=== PATIENT | female | born 1965 | race Native Hawaiian/Other Pacific Islander ===

== ENCOUNTER 2017-02-03 10:11 | Outpatient (CLI) | payer BC ==
[~2017-02-03 10:11] MED LIST: ALPR0.5T24 PO; BUTRANS5 MCG/HR TD; DICL1GEL2 TOP; DICL75TA4 PO; EFFEXOR XR75 MG PO; OMEP40CA PO
== END 2017-02-03 19:04 | disposition home or self-care (01) ==
LOC: US 10:11 → MAMMO 02-04 15:30
DX: Z12.31 Encounter for screening mammogram for malignant neoplasm of breast (principal); R60.0 Localized edema
CPT/HCPCS: G0202-TC

== ENCOUNTER 2017-03-09 07:48 | Day surgery (SDC) | payer BC ==
[2017-03-03 09:34] LABS: POTASSIUM 3.5 mmol/L (3.6-5.2); SODIUM 140 mmol/L (136-145)
[2017-03-03 09:35] LABS: PLATELET COUNT 206 K/uL (152-353)
[2017-03-03 09:45] LABS: PARTIAL THROMBOPLASTIN TIME 26.7 SECONDS (24.5-33.6)
== END 2017-03-09 10:42 | disposition home or self-care (01) ==
LOC: OR 07:48
PROVIDERS: Student in an Organized Health Care Education/Training Program
PROC: 0DBN8ZZ Excision of Sigmoid Colon, Via Natural or Artificial Opening Endoscopic (ICD-10-PCS; principal; 2017-03-09)
PROC: 0DBH8ZZ Excision of Cecum, Via Natural or Artificial Opening Endoscopic (ICD-10-PCS; 2017-03-09)
PROC: 0DBE8ZZ Excision of Large Intestine, Via Natural or Artificial Opening Endoscopic (ICD-10-PCS; 2017-03-09)
PROC: 0DBL8ZZ Excision of Transverse Colon, Via Natural or Artificial Opening Endoscopic (ICD-10-PCS; 2017-03-09)
DX: D12.5 Benign neoplasm of sigmoid colon (principal); K64.8 Other hemorrhoids; Z12.11 Encounter for screening for malignant neoplasm of colon
CPT/HCPCS: 36415; 80053; 85027; 85610; 85730; J2704

== ENCOUNTER 2017-08-17 16:12 | Outpatient (CLI) | payer BC | END 2017-08-17 17:15 | disposition home or self-care (01) | LOC: RAD 16:12 | DX: M15.8 Other polyosteoarthritis (principal); M25.541 Pain in joints of right hand ==

== ENCOUNTER 2018-03-18 12:42 | Outpatient (CLI) | payer BC | END 2018-03-18 19:47 | disposition home or self-care (01) | LOC: MAMMO 12:42 | DX: Z12.31 Encounter for screening mammogram for malignant neoplasm of breast (principal); M54.12 Radiculopathy, cervical region ==

== ENCOUNTER 2018-04-11 10:50 | Outpatient (CLI) | payer BC | END 2018-04-11 19:45 | disposition home or self-care (01) | LOC: MRI 10:50 | DX: M54.12 Radiculopathy, cervical region (principal) ==

== ENCOUNTER 2018-04-19 22:22 | Emergency (ER) | payer BC ==
[~2018-04-19] VITALS: Ht 154.9 cm; Wt 136.1 kg
[2018-04-19] MEDS ORDERED: CEVIMELINE HCL30 MG PO (23:20)
[2018-04-19] MEDS ORDERED: VALTREX500 MG PO (23:21)
[2018-04-19] MEDS ORDERED: ROBAXIN-750750 MG PO (23:22)
[2018-04-19] MEDS ORDERED: MELOXICAM15 MG PO (23:23)
[2018-04-19] MEDS ORDERED: ESCITALOPRAM20 MG PO (23:24)
[2018-04-19] MEDS ORDERED: GABA300C2 PO (23:24)
[2018-04-19] MEDS ORDERED: CLON1TAB18 PO (23:24)
[2018-04-20 00:01] LABS: PLATELET COUNT 233 K/uL (152-353)
[2018-04-20 00:17] LABS: POTASSIUM 4.2 mmol/L (3.6-5.2)
[2018-04-20 03:21] VITALS: BP 148/84; TEMP 97.7
== END 2018-04-20 03:20 | disposition home or self-care (01) ==
LOC: ED 22:22
PROVIDERS: Internal Medicine
DX: N20.0 Calculus of kidney (principal); R31.9 Hematuria, unspecified; R73.9 Hyperglycemia, unspecified; R10.32 Left lower quadrant pain
CPT/HCPCS: 36415; 80053; 81000; 85027; 99283; Q9963

== ENCOUNTER 2020-03-21 13:59 | Outpatient (CLI) | payer BC ==
[~2020-03-21 13:59] MED LIST changes: +CEVIMELINE HCL30 MG PO; +CLON1TAB18 PO; +ESCITALOPRAM20 MG PO; +GABA300C2 PO; +MELOXICAM15 MG PO; +ROBAXIN-750750 MG PO; +VALTREX500 MG PO
== END 2020-03-21 19:09 | disposition home or self-care (01) ==
LOC: MAMMO 13:59
DX: Z12.31 Encounter for screening mammogram for malignant neoplasm of breast (principal)

== ENCOUNTER 2022-03-03 11:14 | Outpatient (CLI) | payer BC | END 2022-03-03 19:28 | disposition home or self-care (01) | LOC: RAD 11:14 | PROVIDERS: ATTEND Nurse Practitioner Family | DX: M54.2 Cervicalgia (principal) ==

== ENCOUNTER 2022-12-21 08:27 | Emergency (ER) | payer BC ==
[~2022-12-21] VITALS: Ht 154.9 cm; Wt 125.6 kg
[2022-12-21 08:31] VITALS: TEMP 97.2
[2022-12-21 09:19] LABS: PLATELET COUNT 232 K/uL (152-353)
[2022-12-21 09:30] LABS: POTASSIUM 4.7 mmol/L (3.6-5.2)
[2022-12-21 11:00] VITALS: BP 160/92
== END 2022-12-21 11:18 | disposition home or self-care (01) ==
LOC: ED 08:27
PROVIDERS: Emergency Medicine Emergency Medical Services
DX: N94.6 Dysmenorrhea, unspecified (principal); K43.9 Ventral hernia without obstruction or gangrene
CPT/HCPCS: 80053; 81000; 81025; 85027; 87490; 87590; 96361; 96374; 99284; J1885; Q9963

== ENCOUNTER 2023-04-02 10:39 | Emergency (ER) | payer BC ==
[~2023-04-02] VITALS: Ht 154.9 cm; Wt 131.5 kg
[2023-04-02 10:50] VITALS: TEMP 98.9
[2023-04-02 12:05] VITALS: BP 109/68
== END 2023-04-02 12:06 | disposition home or self-care (01) ==
LOC: ED 10:39
DX: L50.0 Allergic urticaria (principal); T78.40XA Allergy, unspecified, initial encounter
CPT/HCPCS: 96374; 96375; 99284; J1200; J2930

== ENCOUNTER 2023-06-25 11:03 | Outpatient (CLI) | payer BC | END 2023-06-25 19:17 | disposition home or self-care (01) | LOC: RESP 11:03 | PROVIDERS: ATTEND Specialist | DX: R42 Dizziness and giddiness (principal); R07.89 Other chest pain; R00.2 Palpitations ==